=== PATIENT | male | born 1970 | race Caucasian/White ===

== ENCOUNTER 2021-03-03 12:11 | Emergency (ER) | payer MEDICAID, SELFPAY ==
--- NOTE | ~2021-03-03 | XR_ITS ---
EXAMINATION: XR chest 2V DATE: 03/03/2021 13:02 INDICATION: Abdominal swelling. Weight loss. TECHNIQUE: Frontal and lateral views of the chest were obtained. COMPARISON: None. FINDINGS: The chest demonstrates clear lungs without pneumonia, pleural effusion, or pneumothorax. Th e heart size is normal. IMPRESSION: 1. No acute cardiopulmonary disease. Reviewed, dictated and finalized at location A.
--- NOTE | ~2021-03-03 | XR_ITS ---
EXAMINATION: XR abdomen/kub 1V DATE: 03/03/2021 13:01 INDICATION: Abdominal swelling and pain. Weight loss. TECHNIQUE: A supine view of the abdomen on 2 radiographs was obtained. COMPARISON: None. FINDINGS: There are no dilated loops of bowel. There is a small volume of stool in the colon. IMPRESSION: 1. Normal bowel gas pattern. Reviewed, dictated and finalized at location A.
[2021-03-03 12:21] VITALS: BP 125/82; PULSE 101; RESP 18; TEMP 37; O2SAT 98
--- NOTE | 2021-03-03 12:25 | ED.GENADULT ---
HPI - General Adult General Chief complaint: Abdominal Pain Stated complaint: abd/raghav ankles swelling Time Seen by Provider: 03/03/21 12:25 Source: patient and RN notes reviewed Mode of arrival: ambulatory Limitations: no limitations History of Present Illness HPI narrative: 50-year-old male presents with complaints of bilateral lower extremities swelling and abdominal swelling for the past 9-10 days. ?Yuan reports increasing symptoms over the past 6 days, worse in the evenings. Over the past 1.5 months he has lost over 15 pounds, weight today is 173 pounds per [facility] scale. ?OTC water pill without relief. ?Denies history of poor circulation, chronic BLE swelling, DVT, cirrhosis of the liver, ascites, kidney failure. ?Patient drinks daily, started off with drinking a 6 pack daily for approximately 10 years and now drinks 4 glasses of wine daily. No known injury. ?No radiation of pain. ?No numbness or tingling, drainage, or bleeding. ?No loss of mobility. ?Exacerbating factor consists of prolonged standing. ?No fever or chills. Denies chest pain, dyspnea, headache, recent long car rides. ?No nausea, vomiting, or abdominal pain. Tolerating po intake well. Remains active. ?The patient reports he has not been diagnosed with COVID-19. ?The patient reports he is not waiting for the results of a COVID-19 lab test. ?The patient reports he does not have weakness, fatigue, or myalgia. The patient reports he does not have a new or worsening cough or shortness of breath. The patient reports he does not have any rhinorrhea, congestion, sore throat, and diarrhea. Denies recent traveling. Denies concerns for COVID-19 or exposures. At this time, the patient is not suspected of having COVID-19. Some parts of this dictation were generated by voice recognition software and may contain typographical and/or grammatical inaccuracies. Related Data Home Medications Medication Instructions Recorded Confirmed aspirin [Adult Aspirin] 81 mg PO DAILY 03/03/21 03/03/21 [id number] grass-hydran tablet PO 03/03/21 [Diuretic] cyanocobalamin-cobamamide [B12] musa SUBLINGUAL 03/03/21 Allergies Allergy/AdvReac Type Severity Reaction Status Date / Time No Known Allergies Allergy Verified 03/03/21 12:27 Review of Systems Review of Systems: Narrative: CONSTITUTIONAL: Denies fever, chills, sweats. EYES: Denies visual changes, redness, discharge. ENT: Denies rhinorrhea, congestion, sore throat, otalgia. CARDIOVASCULAR: Denies chest pain, palpitations. Complaints of bilateral lower extremities edema, abdominal swelling, weight loss. RESPIRATORY: Denies dyspnea, wheezing, cough. GASTROINTESTINAL: Denies abdominal pain, nausea, vomiting, diarrhea. GENITOURINARY: Denies dysuria, hematuria, abnormal discharge. SKIN: Denies rash or itching. MUSCULOSKELETAL: Denies acute back pain, joint pain, or myalgia. NEUROLOGIC: Denies numbness or focal weakness. PSYCHIATRIC: Denies anxiety or depression. All other systems reviewed & are unremarkable except as noted in HPI and below. [facility] Past Medical History Medical History Alcohol drinker Smoker Surgical History Surgical History (Updated 03/03/21 @ 12:47 by GIA Sheehan) Hx of appendectomy Family History Family History (Updated 03/03/21 @ 12:46 by GIA Sheehan) Father Alive and well Mother Alive and well Social History Social History (Updated 03/03/21 @ 12:49 by GIA Sheehan) Smoking packs per day: 0.5 Smoking cigarettes per day: 10.0 Years smoked: 20 Smoking pack-years: 10.00 Smoking status: Current every day smoker Tobacco type: cigarettes Second hand tobacco smoke exposure: No Alcohol intake: current Drinks per week: 28 Alcohol use details: Yuan reports 6 pack of beer daily for 10 yrs and 6 months ago started 4 glasses of domingo daily Substance use: never Substance use type: does not use Living arrangements: wit
--- NOTE | 2021-03-03 12:43 | ECG_ITS ---
Measurements Intervals [place] Rate: 88 P: 17 ME: 144 QRS: 48 QRSD: 77 T: 44 QT: 349 QTc: 424 Interpretive Statements SINUS RHYTHM LOW QRS VOLTAGE IN PRECORDIAL LEADS BASELINE ARTIFACT- I, III, AVR, AVL, AVF, V1 BORDERLINE ECG Electronically Signed On 03-03-2021 15:26:31 CDT by Chet House D.O.
[2021-03-03 12:54] VITALS: BP 123/88; PULSE 87
--- NOTE | 2021-03-03 12:57 | PC.NURSE ---
eCG and orthostatics complete
== END 2021-03-03 14:00 | disposition home or self-care (01) ==
PROVIDERS: Emergency Provider Nurse Practitioner Family
DX: R60.1 Generalized edema (principal); Z79.82 Long term (current) use of aspirin; F17.210 Nicotine dependence, cigarettes, uncomplicated
CPT/HCPCS: 71046; 74018; 93005; 99213; G0463

== ENCOUNTER 2021-03-13 11:13 | Observation (INO) | payer MEDICAID, SELFPAY ==
[2021-03-13] VITALS (17 sets, daily range): BP systolic 110–128; BP diastolic 74–95; PULSE 88–126; RESP 14–23; TEMP 35.4–37.4; O2SAT 97–100; BMI 23.3
--- NOTE | ~2021-03-13 | CT_ITS ---
EXAMINATION: CT abdomen pelvis w con INDICATION: Abdominal distention TECHNIQUE: Computed tomographic images of the abdomen and pelvis were obtained after the administrati on of 100 cc of Omnipaque 350 intravenous contrast. The dose-length product (DLP) was 465.90 mGy-cm. Automated exposure control and iterative reconstruction technique were employed. COMPARISON: None available FINDINGS: The lung bases are clear. The heart size is normal. There is a large volume of ascites. The liver surface is nodular. Periesophageal varices are noted. The spleen, pancreas, and adrenal glands are normal. Apparent wall thickening of the gallbladder is likely related to liver disease. The kidn eys are unremarkable. No pathologically enlarged abdominal or pelvic lymph nodes are identified. Ther e is no free intraperitoneal gas or evidence of bowel obstruction. Colonic diverticulosis is present without evidence of diverticulitis. There is an umbilical hernia containing fat and ascites. There is mild lumbar spondylosis. IMPRESSION: 1. Cirrhosis with a large volume of ascites. Reviewed, dictated and finalized at location A.
--- NOTE | ~2021-03-13 | US_ITS ---
EXAMINATION: US paracentesis abd w/image DATE: 03/13/2021 15:45 INDICATION: Ascites. TECHNIQUE: The procedure and its risks and benefits were discussed with the patient. Potential risks discussed included bleeding and infection. The skin was prepped and draped in sterile fashion. 1% lid ocaine was used for local anesthesia. Under ultrasound guidance, a 5 Fr catheter with trochar was adv anced into the ascites in the right lower quadrant. Fluid was aspirated into vacuum bottles. The cath eter was removed, and a dressing was applied. There were no immediate complications. FINDINGS: Ultrasound images demonstrate ascites and the catheter within the fluid. IMPRESSION: 1. Successful ultrasound-guided paracentesis yielding 4200 mL of cloudy yellow fluid. Reviewed, dictated and finalized at location A.
[2021-03-13 11:43] LABS: Basophils Percent Auto 0.4 % (0.2-1.2); Eosinophils Absolute Auto 0.1 K/mm3 (0-0.3); Eosinophils Percent Auto 0.8 % (0-4.4); Hematocrit 40.5 % (42.0-52.0); Hemoglobin 13.8 g/dL (14.0-18.0); Immature Granulocyte Absolute 0.04 K/mm3 (0.00-0.031); Immature Granulocyte Percent A 0.4 % (0-0.5); Lymphocytes Absolute Auto 4.04 K/mm3 (0.9-3.2); Lymphocytes Percent Auto 44.7 % (18.3-44.2); Mean Corpuscular HGB Conc 34.1 g/dl (32-36); Mean Corpuscular Hemoglobin 36.5 pg (26-34); Mean Corpuscular Volume 107.1 fl (80-100); Mean Platelet Volume 9.3 fl (7.4-10.4); Monocytes Percent Auto 10.7 % (2.6-8.5); Neutrophils Absolute Auto 3.9 K/mm3 (1.3-6.7); Platelet Count Result 345 k/mm3 (150-375); Red Blood Count 3.78 M/mm3 (4.6-6.20); Red Cell Distribution Width 12.2 % (11.5-14.5)
[2021-03-13 11:46] LABS: Add Urine Microscopic? YES; Appearance Urine Clear (Clear); Bacteria Urine Trace /hpf; Bilirubin Urine Negative (Negative); Blood Urine Negative (Negative); Color Urine Yellow (Yellow); Glucose Urine UA Negative (Negative); Ketones Urine Negative (Negative); Leukocyte Esterase Ur Negative LEU/UL (Negative); Mucus Urine Rare /lpf; Nitrate Urine Negative (Negative); Protein Urine Negative (Negative); Specific Grav Ur 1.012 (1.001-1.035); WBC Urine 0-3 /hpf
[2021-03-13 11:53] LABS: Alanine Aminotransferase 23 U/L (4-50); Albumin Level 2.6 g/dL (3.5-5.1); Alkaline Phosphatase 202 U/L (38-126); Anion Gap 6 mmol/L (8-16); Aspartate Amino Transferase 56 U/L (17-59); Bilirubin,Total 0.7 mg/dL (0.2-1.3); Blood Urea Nitrogen 4 mg/dL (9-20); Calcium 8.1 mg/dL (8.4-10.2); Carbon Dioxide 28 mmol/L (22-30); Chloride 101 mmol/L (98-107); Estimated CRCL calculation 98 ml/min; Estimated Glomerular Filt Rate > 60; Glucose 83 mg/dL (65-110); Lipase 74 U/L (23-300); Potassium 3.3 mmol/L (3.4-5.0); Sodium 135 mmol/L (137-145)
--- NOTE | 2021-03-13 12:34 | ED.GENADULT ---
HPI - General Adult General Chief complaint: Abdominal Pain Stated complaint: abd pain Time Seen by Provider: 03/13/21 12:06 Source: patient History of Present Illness HPI narrative: Patient is a 50 y/o male complaining of generalized abdominal pain and swelling for about 10 days. He describes his pain as tingling and sharp. He rates his pain as 4/10. He states that laying down on his back helps some with his abdominal pain. He also has bilateral leg swelling. He has no vomiting, diarrhea or dysuria. Of note, he was seen recently at urgent care and placed on HCTZ. Related Data Allergies Allergy/AdvReac Type Severity Reaction Status Date / Time No Known Allergies Allergy Verified 03/13/21 16:13 Review of Systems Constitutional: Constitutional: Denies chills, Denies fever(s), Denies headache(s) and Denies weakness Eyes: Eyes: Denies blurry vision ENT: Denies headache(s) and Denies neck pain Cardiovascular: Cardiovascular: Denies chest pain, Reports leg edema and Denies dyspnea Respiratory: Respiratory: Denies cough and Denies dyspnea Gastrointestinal: Gastrointestinal: Reports abdominal pain, Denies diarrhea, Denies nausea and Denies vomiting Genitourinary: Genitourinary: Denies hematuria and Denies dysuria Musculoskeletal: Musculoskeletal: Denies back pain and Denies neck pain Neurologic: Denies headache(s) and Denies weakness PMFSH Past Medical History Medical History Alcohol drinker Smoker Surgical History Surgical History Hx of appendectomy Family History Family History Father Alive and well Mother Alive and well Social History Social History Smoking packs per day: 0.5 Smoking cigarettes per day: 10.0 Years smoked: 30 Smoking pack-years: 15.00 Smoking status: Current every day smoker Tobacco type: cigarettes Second hand tobacco smoke exposure: No Alcohol intake: current Drinks per week: 21 Alcohol use details: Yuan reports 6 pack of beer daily for 10 yrs and 6 months ago started 4 glasses of domingo daily Substance use: current Substance use type: marijuana Other substance usage details: pt takes CBD gummies Gender identity (if verbalized by the patient): Male Spiritual care concerns: No Exam Const: General: no acute distress and well developed Orientation/consciousness: oriented to person, oriented to place, oriented to time and patient oriented x3 HENMT: Head: normocephalic Ears: external ears normal General nose exam: Normal external nose present Eyes: General: appearance normal, both eyes and all related structures Conjunctivae: conjunctivae normal Neck: Neck: normal visual inspection and full ROM Chest: Chest palpation & inspection: normal inspection of the chest and no tenderness Resp: Effort & Inspection: normal respiratory effort Auscultation: clear to auscultation bilaterally Cardio: Rate: tachycardic Rhythm: regular rhythm GI: Inspection: distended GI Palp: No abdominal tenderness and Yes Firmness to palpation present (GI) Skin: General skin exam: normal color and turgor normal Neuro: General: oriented to person, oriented to place, oriented to time and patient oriented x3 Cognition (Neuro): normal cognition Extrem: General: normal to inspection, full ROM and edema bilateral Psych: Appearance: grossly normal Mental Status: mental status grossly normal Affect: normal affect Course Consultations Consultation #1: 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 Date: 03/13/21 Time: 13:15 Vital Signs Vital signs: Vital Signs Temperature 37.4 C 03/13/21 11:15 Pulse Rate 126 H 03/13/21 11:15 Respiratory Rate 20 03/13/21 11:15 Blood Pressure 127/93 H 03/13/21 11:15 Pulse Oximetry 100 03/13/21 11:15 Temperature 35.4 C L 03/13/21 16:32 Pulse Rate 100 03/13/21
--- NOTE | 2021-03-13 12:37 | ECG_ITS ---
Measurements Intervals [place] Rate: 87 P: 54 UT: 182 QRS: -4 QRSD: 74 T: 8 QT: 365 QTc: 441 Interpretive Statements SINUS RHYTHM LOW QRS VOLTAGE IN PRECORDIAL LEADS BASELINE ARTIFACT- I, II, III, AVR, AVL, AVF BORDERLINE ECG Electronically Signed On 03-13-2021 18:00:25 CDT by Chet House D.O.
--- NOTE | 2021-03-13 12:47 | PC.NURSE ---
Pt off floor in radiology
[2021-03-13 12:57] LABS: NT Pro B Type Natriuretic Pept 181 pg/mL (5-100)
[2021-03-13 14:11] LABS: INR 1.1; Partial Thromboplastin Time 28.7 SECONDS (22.3-36.8); Prothrombin Time 13.9 Seconds (11.1-14.7)
[2021-03-13 15:59] LABS: Appearance Peritoneal Fluid Cloudy (Clear); Color Peritoneal Fluid Yellow (Colorless); Source Peritoneal Fluid Peritoneal Fluid
--- NOTE | 2021-03-13 16:09 | ADMGEN ---
This patient, Yuan Michaels, was admitted to Medical Room 342-01. Patient/family oriented to hospital policies and general routines including ID bracelet, bed and alarms, visiting hours, pain management, procedures, bathroom and other care routines, personal items, smoking policy, room service/diet, and visiting hours. Information on how to activate the Rapid Response Team has been discussed. Patient/Family are encouraged to report perceived risks to care and to ask questions if they do not understand what they are told or what they should do.
[2021-03-13 19:26] LABS: Lymphocytes Peritoneal Fluid 33 %; Macrophages Peritoneal Fluid 14 %; Mesothelial Cells Peritoneal Fluid 53 %; Nucleated Cells Peritoneal Flu 20 /uL (0-500); RBC Peritoneal Fluid 20 /uL (0-100000)
--- NOTE | 2021-03-13 19:35 | PM.IMHP ---
H&P: HPI History of Present Illness Date/Time: 03/13/21 19:35Thiparth is a 50-year-old male patient who came to the emergency room with complaint of generalized abdominal discomfort. The patient stated he initially went to urgent care and was prescribed hydrochlorothiazide. Than he was told to see a primary care doctor. He did this and his primary care doctor told him to go to the emergency room. So he went to the emergency room at [facility]. The patient stated they did nothing for him. So he decided to come here. His have an abdominal discomfort and swelling for way over 10 days. Patient admits to drinking a bottle of wine a day. Abdominal CT was read as cirrhosis with a large volume of ascites. A paracentesis was performed and they drained off 4200 mL of cloudy yellow fluid. The patient stated that he had never been diagnosed with cirrhosis of the liver in the past. H&H is 13.8 And40.5. potassium was found to be 3.3 and sodium 135. Alkaline phosphatase 202 and albumin 2.6. The patient denies any fever chills. No nausea vomiting or diarrhea. The patient last drink alcohol around 10 or 11:00 a.m. this morning. The patient was admitted to observation status overnight. On the date of service 03/13/2021. Chief Complaint: Abdominal discomfort Review of Systems Review of Systems: All systems reviewed & are unremarkable except as noted in HPI and below Constitutional: Constitutional: Reports as per HPI and Reports no additional constitutional complaints Eyes: Eyes: Reports as per HPI and Reports no additional eye complaints ENT: Reports system reviewed and no additional complaints, except as documented and Reports Normal hearing present Cardiovascular: Cardiovascular: Reports no additional cardiovascular complaints Respiratory: Respiratory: Reports no additional respiratory complaints and Reports no additional respiratory complaints Gastrointestinal: Gastrointestinal: Reports as per HPI and Reports no additional gastrointestinal complaints Musculoskeletal: Musculoskeletal: Reports no additional musculoskeletal complaints Integumentary/Breasts: Skin/Breast: Reports system reviewed and no additional complaints, except as docu and Reports as per HPI Neurologic: Reports system reviewed and no additional complaints, except as documented, Reports as per HPI and Reports Normal hearing present Psychiatric: Psychiatric: Reports no additional psychiatric complaints and Reports as per HPI Endocrine: Endocrine: Reports no additional endocrine complaints Hematologic/Lymphatic: Hematologic/Lymphatic: Reports no additional hematologic/lymphatic complaints Allergic/Immunologic: Allergic/Immunologic: Reports no additional allergic/immunologic complaints PMFSH Past Medical History Medical History Alcohol drinker Smoker Surgical History Surgical History H/O hernia repair Hx of appendectomy Family History Family History Father Alive and well Mother Alive and well Social History Social History (Updated 03/13/21 @ 19:43 by Tere Davenport NP) Social History: the patient drinks a bottle of wine a day and smokes a half pack a cigarettes a day. He has 2 children. He lives with a significant other and does not have a durable power brush operator for healthcare. He is a full code. The patient uses marijuana gummies. Smoking packs per day: 0.5 Smoking cigarettes per day: 10.0 Years smoked: 30 Smoking pack-years: 15.00 Smoking status: Current every day smoker Tobacco type: cigarettes Second hand tobacco smoke exposure: No Alcohol intake: current Drinks per week: 21 Alcohol use details: Yuan reports 6 pack of beer daily for 10 yrs and 6 months ago started 4 glasses of domingo daily Substance use: current Substance use type: marijuana Other substance usage details: pt takes CBD gummies Gen
[2021-03-13] MEDS: NICOTINE (*PBKC) 14 MG PATCH 1 PATCH TRANSDERM (20:24)
[2021-03-13 21:04] LABS: Hepatitis B Surface Antigen Negative (Negative)
[2021-03-13 21:10] LABS: HAV RESULT Negative (Negative); Hepatitis B Core IgM Result Negative (Negative)
[2021-03-13 21:22] LABS: Hepatitis C Virus Antibody Negative (Negative)
[2021-03-14 05:53] LABS: Basophils Absolute Auto 0.1 K/mm3 (0.0-0.1); Basophils Percent Auto 0.8 % (0.2-1.2); Eosinophils Absolute Auto 0.1 K/mm3 (0-0.3); Eosinophils Percent Auto 2.1 % (0-4.4); Hemoglobin 12.8 g/dL (14.0-18.0); Immature Granulocyte Absolute 0.04 K/mm3 (0.00-0.031); Immature Granulocyte Percent A 0.6 % (0-0.5); Lymphocytes Absolute Auto 3.22 K/mm3 (0.9-3.2); Lymphocytes Percent Auto 51.4 % (18.3-44.2); Mean Corpuscular HGB Conc 34.6 g/dl (32-36); Mean Corpuscular Hemoglobin 36.6 pg (26-34); Mean Corpuscular Volume 105.7 fl (80-100); Mean Platelet Volume 9.3 fl (7.4-10.4); Monocytes Absolute Auto 0.8 K/mm3 (0.1-0.6); Monocytes Percent Auto 13.1 % (2.6-8.5); Platelet Count Result 270 k/mm3 (150-375); Red Cell Distribution Width 11.9 % (11.5-14.5); White Blood Count 6.3 K/mm3 (4.5-10.0)
[2021-03-14 05:59] VITALS: BP 119/74; PULSE 95; RESP 17; TEMP 36.2; O2SAT 94
[2021-03-14 06:07] LABS: Alanine Aminotransferase 16 U/L (4-50); Alkaline Phosphatase 163 U/L (38-126); Anion Gap 2 mmol/L (8-16); Aspartate Amino Transferase 38 U/L (17-59); Bilirubin,Total 0.6 mg/dL (0.2-1.3); Blood Urea Nitrogen 4 mg/dL (9-20); Calcium 7.7 mg/dL (8.4-10.2); Carbon Dioxide 28 mmol/L (22-30); Chloride 105 mmol/L (98-107); Estimated CRCL calculation 111 ml/min; Estimated Glomerular Filt Rate > 60; Glucose 89 mg/dL (65-110); Magnesium 1.9 mg/dL (1.6-2.3); Potassium 2.9 mmol/L (3.4-5.0); Sodium 135 mmol/L (137-145)
--- NOTE | 2021-03-14 07:57 | WPDGICN ---
Assessment and Plan Assessment and plan (1) Decompensation of cirrhosis of liver: Code(s): K72.90 - Hepatic failure, unspecified without coma; K74.60 - Unspecified cirrhosis of liver Status: Acute Assessment and Plan: new diagnosis, probably from excessive alcohol use but we will obtain blood work to assess for other chronic liver conditions hepatitis negative patient will need liver imaging every 6 months for HCC surveillance also will schedule EGD as outpatient to assess for PHG or varices he can go home with follow-up office (2) Ascites: Code(s): R18.8 - Other ascites Status: Acute Assessment and Plan: fluid reviewed, no SBP he will need 2g na diet, nutrition education started on lasix 40mg and aldactone 100mg daily (discontinue HCTZ) and he can follow up office in 3-4 weeks with repeat labs (3) Alcohol abuse: Code(s): F10.10 - Alcohol abuse, uncomplicated Status: Acute Assessment and Plan: needs to stop drinking altogether (4) Smoker: Code(s): F17.200 - Nicotine dependence, unspecified, uncomplicated Status: Chronic Assessment and Plan: needs to quit (5) Hypokalemia: Code(s): E87.6 - Hypokalemia Status: Acute Assessment and Plan: replete here in the hospital GI Consult Note Consult date/time: 03/14/21 07:57 Reason for consult: new diagnosis of cirrhosis HPI: Yuan Michaels is a 50 year old male with no really major chronic medical problems who recently was started on HCTZ after he went to urgent care because leg edema. He drinks 3-4 glasses of wine most of the days. He came here with progressive increase of abdominal girth (denies history of liver disease, he says that during his regular physical check up never had problems) with bloating and also fatigue. CT scar a/p reviewed, cirrhosis with a large volume of ascites. A paracentesis was performed, obtained 4200 mL of cloudy yellow fluid. Blood work hb 13.8, plat 345, potassium 3.3, sodium 135, creat 0.8, alkaline phosphatase 202 and albumin 2.6. No nausea, vomiting, melena or diarrhea. Hepatitis panel negative. Denies illicits. Review of Systems Constitutional: Constitutional: Denies headache(s) and Denies weakness Eyes: Eyes: Denies blurry vision ENT: Reports Normal hearing present, Denies headache(s) and Denies neck pain Cardiovascular: Cardiovascular: Denies chest pain and Denies dyspnea Respiratory: Respiratory: Denies dyspnea Gastrointestinal: Gastrointestinal: Reports no additional gastrointestinal complaints Genitourinary: Genitourinary: Denies dysuria Musculoskeletal: Musculoskeletal: Denies neck pain Integumentary/Breasts: Skin/Breast: Denies dry skin Neurologic: Reports Normal hearing present, Denies headache(s) and Denies weakness Psychiatric: Psychiatric: Denies anxiety Endocrine: Endocrine: Denies change in body appearance Hematologic/Lymphatic: Hematologic/Lymphatic: Denies easy bleeding Allergic/Immunologic: Allergic/Immunologic: Denies urticaria PMFSH Past Medical History Medical History Alcohol abuse Alcohol drinker Ascites Decompensation of cirrhosis of liver Hypokalemia Smoker Surgical History Surgical History H/O hernia repair Hx of appendectomy Family History Family History Father Alive and well Mother Alive and well Social History Social History (Updated 03/13/21 @ 19:43 by Tere Davenport NP) Social History: the patient drinks a bottle of wine a day and smokes a half pack a cigarettes a day. He has 2 children. He lives with a significant other and does not have a durable power finance attorney for healthcare. He is a full code. The patient uses marijuana gummies. Smoking packs per day: 0.5 Smoking cigarettes per day: 10.0 Years smoked: 30 Smoking pack-years: 15.00 Smoking status: Mario
[2021-03-14] MEDS: NICOTINE (*PBKC) 14 MG PATCH 1 PATCH TRANSDERM (08:52)
[2021-03-14] MEDS: THIAMINE HCL 100 MG TABLET PO (08:52)
[2021-03-14] MEDS: ENOXAPARIN 40 MG/0.4 ML SYRINGE SUB-Q (08:52)
[2021-03-14] MEDS: FUROSEMIDE 40 MG TABLET PO (08:52)
[2021-03-14] MEDS: FOLIC ACID 1 MG TABLET PO (08:52)
[2021-03-14] MEDS: SPIRONOLACTONE 50 MG TABLET 100 MG PO (08:52)
[2021-03-14 09:33] LABS: Iron 40 ug/dL (49-181)
[2021-03-14 09:44] LABS: Percent Iron Saturation 26 % (20-50)
[2021-03-14 10:13] LABS: Immunoglobulin G 1970 mg/dL (700-1600); Immunoglobulin M 113 mg/dL (40-230)
[2021-03-14 10:42] LABS: Immunoglobulin A 908 mg/dL (70-400)
[2021-03-14 12:58] LABS: Potassium 2.9 mmol/L (3.4-5.0)
[2021-03-14] MEDS: POTASSIUM CHLORIDE 20 MEQ TABLET 40 MEQ PO (13:15)
--- NOTE | 2021-03-14 13:50 | PM.DS ---
DS: Admitting Diagnosis Admitting Diagnosis Admitting Diagnosis: cirrhosis DS: Discharge Diagnosis Discharge Diagnosis (1) Cirrhosis: Qualifiers: Ascites presence: with ascites Hepatic cirrhosis type: unspecified hepatic cirrhosis Qualified Code(s): K74.60 - Unspecified cirrhosis of liver; R18.8 - Other ascites Code(s): K74.60 - Unspecified cirrhosis of liver Status: Acute Assessment and Plan: Pt underwent a paracentesis 03/13/21 which yielded 4200ml of clowdy yellow fluid which improved his symptoms -GI was consulted and his cirrhosis lab work up is pending, he is going to f/u with Dr. Sutton for futher work up and evaluation. -Pt educated about cessation of alcohol -Pt started on lasix and spironolactone and needs a repeat BMP in one week and results are going to go to Dr. Sutton and he agrees to follow up. -continue low sodium diet (2) Alcohol drinker: Code(s): Z72.89 - Other problems related to lifestyle Status: Inactive Assessment and Plan: No withdraw symptoms while hospitalized. No need for librium at d/c . (3) Smoker: Code(s): F17.200 - Nicotine dependence, unspecified, uncomplicated Status: Chronic Assessment and Plan: smoking cessation encouraged (4) Hypokalemia: Code(s): E87.6 - Hypokalemia Status: Acute Assessment and Plan: Likely due to diuretics -Pt received 40meq before discharge and he was given 4 additional days for outpt and he is to get a follow up BMP to assess his potassium DS: Summary Hospital Course Hospital Course: Pt is a 50 y/o male Presented emergency room for abdominal distension and discomfort found to have cirrhosis and ascites. Vitals in the ER were temperature 37.4? C, pulse 126, respiratory rate 20, blood pressure 127/93, pulse ox 100 on room air. Initial white blood cell count 9.0, hemoglobin 13.8, hematocrit 40.5, platelets 345. BMP looks relatively normal with exception of potassium slightly low 3.3. AST and ALT are normal, alk-phos high 202. CT of the abdomen pelvis shows cirrhosis with large volume ascites. He underwent a paracentesis ultrasound 03/13/21 yielding 4200 mL of cloudy yellow fluid. G stain showed no organisms or white blood cells. His cultures have no growth to date and will be monitored until finalized. Patient's potassium is 2.9 today but he is feeling much better And is eating and drinking well. He is very insistent on going home as he has to take care of his children. I replaced his potassium today and give him 4 days worth of potassium outpatient. Since he is on Lasix and now spironolactone, I want him to get a BMP on Sunday. at that time, it can be reviewed to see if he needs additional potassium supplementation. The patient does not have a primary care physician but I spoke to Dr. Sutton who agreed to follow this lab. Also, pt drinks max 4 glasses of wine a day. he has no hx of alcohol withdraw symptoms in the past. He has not required the PRN librium while he was here. I do not think he needs additional medication for alcohol withdraw at this time. I will supplement folic acid and thiamine. The day of discharge patient was feeling much better. He was educated about the worrisome signs and symptoms come back to emergency room for and was discharged stable condition. Status at Discharge Functional status at discharge: independent ambulation Overall status at discharge: patient is progressing back to baseline Time Spent with Patient Time attestation: Total time spent providing and/or coordinating discharge services:36 min Time spent: Greater than 30 minutes Exam Narrative: Exam Narrative: General: Well developed well nourished patient in NAD HEENT: normocephalic Neck: supple Neuro: Alert and oriented x4 CV:RRR Resp:CTA Abd: Soft, partially distended. No pain to palpation. Positive bowel sounds Extremities: No swelling, erythema, or pain to palpation
[2021-03-14 14:55] VITALS: O2SAT 97
[2021-03-16 22:42] LABS: Albumin Peritoneal Fluid 0.7 g/dL
[2021-03-17 00:04] LABS: Anti Nuclear Antibody Titer 1:40 (Negative)
[2021-03-17 11:03] LABS: Ceruloplasmin 31 mg/dL (18-36)
[2021-03-20 09:53] LABS: Mitochondrial (M2) Ab (IgG) <=20.0 U (<=20.0)
--- NOTE | 2021-03-22 10:27 | PC.NURSE ---
ascites cx shows no growth
== END 2021-03-14 14:30 | disposition home or self-care (01) ==
LOC: ANHED 14:29 → ANH3MED 14:45
PROVIDERS: Emergency Medicine; Internal Medicine Gastroenterology; Nurse Practitioner; Admitting Provider Internal Medicine; Emergency Provider Emergency Medicine; Visit Provider Physician Assistant
DX: K74.60 Unspecified cirrhosis of liver (principal); R18.8 Other ascites; K72.90 Hepatic failure, unspecified without coma; E87.6 Hypokalemia; F10.10 Alcohol abuse, uncomplicated; F17.210 Nicotine dependence, cigarettes, uncomplicated; F12.90 Cannabis use, unspecified, uncomplicated
CPT/HCPCS: 36415; 49083; 74177; 80053; 80074; 81001; 82042; 82104; 82390; 82728; 82784; 83520; 83540; 83550; 83605; 83690; 83735; 83880; 84132; 84443; 85025; 85610; 85730; 86038; 86039; 87070; 87075; 87205; 88104; 88108; 88305; 89051; 93005; 96372; 99285; A9270; G0378; G0379; J1650; Q9967

== ENCOUNTER 2021-03-19 10:39 | Outpatient (CLI) | payer MEDICAID, SELFPAY ==
[2021-03-19 11:11] LABS: Anion Gap 6 mmol/L (8-16); Blood Urea Nitrogen 6 mg/dL (9-20); Calcium 8.5 mg/dL (8.4-10.2); Carbon Dioxide 26 mmol/L (22-30); Chloride 102 mmol/L (98-107); Estimated Glomerular Filt Rate > 60; Glucose 87 mg/dL (65-110); Potassium 3.8 mmol/L (3.4-5.0); Sodium 134 mmol/L (137-145)
== END 2021-03-19 10:40 | disposition home or self-care (01) ==
LOC: ANHLAB 10:44
PROVIDERS: Visit Provider Physician Assistant
DX: K74.60 Unspecified cirrhosis of liver (principal)
CPT/HCPCS: 36415; 80048

== ENCOUNTER → 2021-04-05 01:57 | Outpatient (CLI) | payer MEDICAID, SELFPAY ==
[2021-04-05 17:39] LABS: SARS-CoV-2 RNA PCR Negative
== END ==
PROVIDERS: Visit Provider Internal Medicine Gastroenterology
DX: Z01.812 Encounter for preprocedural laboratory examination (principal); Z20.822 Contact with and (suspected) exposure to COVID-19
CPT/HCPCS: C9803; U0003; U0005

== ENCOUNTER 2021-04-08 02:35 | Day surgery (SDC) | payer MEDICAID, SELFPAY ==
[2021-03-29 14:09] VITALS: BMI 22.4
[2021-04-08] MEDS: LACTATED RINGERS 1,000 ML 150 ML IV CONT (11:24)
--- NOTE | 2021-04-08 11:25 | P.PNAN_ITS ---
Anes - Initial Pre Proc Eval Procedure: Operation Date: 04/08/21 12:15 Proposed Procedures p Esophagogastroduodenoscopy - Timmy Miranda MD Date/Time: 04/08/21 11:25 Surgeon: Timmy Miranda MD Pre Op Diagnosis: alcoholic cirrhosis Patient Data Age: 50 Gender: M Height: 1.75 m Weight: 69 kg Allergies Allergy/AdvReac Type Severity Reaction Status Date / Time No Known Allergies Allergy Verified 04/08/21 11:25 Home Medications Medication Instructions Recorded Confirmed Type folic acid 1 mg PO DAILY #30 tablet 03/14/21 03/29/21 Rx thiamine HCl (vitamin B1) [Vitamin 100 mg PO QAM #30 tablet 03/14/21 03/29/21 Rx B-1] furosemide 80 mg PO DAILY 03/29/21 03/29/21 History spironolactone [Aldactone] 100 mg PO BID 03/29/21 03/29/21 History Patient hx anesthesia problems: none Family hx anesthesia problems: none PMFSH Past Medical History Medical History Alcohol abuse Alcohol drinker Ascites Decompensation of cirrhosis of liver Hypokalemia Smoker Surgical History Surgical History H/O hernia repair Hx of appendectomy Family History Family History Father Alive and well Mother Alive and well Social History Social History Social History: the patient drinks a bottle of wine a day and smokes a half pack a cigarettes a day. He has 2 children. He lives with a significant other and does not have a durable power workers compensation defense attorney for healthcare. He is a full code. The patient uses marijuana gummies. Smoking packs per day: 0.5 Smoking cigarettes per day: 10.0 Years smoked: 30 Smoking pack-years: 15.00 Smoking status: Current every day smoker Tobacco type: cigarettes Second hand tobacco smoke exposure: No Alcohol intake: current Drinks per week: 21 Alcohol use details: Yuan reports 6 pack of beer daily for 10 yrs and 6 months ago started 4 glasses of domingo daily Substance use: current Substance use type: marijuana Other substance usage details: pt takes CBD gummies Living arrangements: with family Gender identity (if verbalized by the patient): Male Spiritual care concerns: No Anes - Eval Final PreProcedure Day of Procedure 04/08/21 11:25 Patient weight: normal Heart: regular rate and rhythm Lungs: decreased breath sounds Airway: Mallampati scale class II Neurological: other (alert) Last oral intake: >/= 8 hours ASA classification: III Emergent: no Anesthesia type and monitoring: general GIVS and standard monitoring Informed Consent: The patient's anesthetic plan and its attendant risks and benefits were discussed with the patient/family/POA. Questions were solicited and answers provided to the satisfaction of the patient/family/POA.
[2021-04-08 11:26] VITALS: BP 105/73; PULSE 100; RESP 18; TEMP 36.5; O2SAT 97
--- NOTE | 2021-04-08 11:36 | WPDHPUPDATE1 ---
History and Physical Update Update Date/Time: 04/08/21 11:36 History and Physical has been reviewed, including an updated exam of the patient. There are NO changes in the patient's condition. Risks, benefits, and alternatives have been discussed and questions answered. Patient agrees to proceed with procedure.
[2021-04-08 11:50] VITALS: BP 97/69; PULSE 92; RESP 12; O2SAT 94
[2021-04-08 12:00] VITALS: BP 96/72; PULSE 90; RESP 11; O2SAT 92
[2021-04-08 12:10] VITALS: BP 108/82; PULSE 90; RESP 17; O2SAT 95
== END 2021-04-08 12:29 | disposition home or self-care (01) ==
PROVIDERS: Visit Provider Internal Medicine Gastroenterology
PROC: 0DJ08ZZ Inspection of Upper Intestinal Tract, Via Natural or Artificial Opening Endoscopic (ICD-10-PCS; CPT 43235; principal; 2021-04-08 12:15)
DX: K74.60 Unspecified cirrhosis of liver (principal); K21.00 Gastro-esophageal reflux disease with esophagitis, without bleeding; K29.70 Gastritis, unspecified, without bleeding; R18.8 Other ascites; F10.10 Alcohol abuse, uncomplicated; F17.200 Nicotine dependence, unspecified, uncomplicated
CPT/HCPCS: 43239; 88305; J2704; J7120

== ENCOUNTER 2021-08-01 11:44 | Outpatient (CLI) | payer OTHER, SELFPAY ==
[2021-08-01 20:24] LABS: Basophils Absolute Auto 0.1 K/mm3 (0.0-0.1); Basophils Percent Auto 0.8 % (0.2-1.2); Eosinophils Absolute Auto 0.1 K/mm3 (0-0.3); Eosinophils Percent Auto 0.7 % (0-4.4); Hematocrit 41.1 % (42.0-52.0); Hemoglobin 14.9 g/dL (14.0-18.0); Immature Granulocyte Absolute 0.07 K/mm3 (0.00-0.031); Immature Granulocyte Percent A 0.7 % (0-0.5); Lymphocytes Absolute Auto 4.07 K/mm3 (0.9-3.2); Lymphocytes Percent Auto 41.9 % (18.3-44.2); Mean Corpuscular HGB Conc 36.3 g/dl (32-36); Mean Corpuscular Hemoglobin 37.7 pg (26-34); Mean Corpuscular Volume 104.1 fl (80-100); Mean Platelet Volume 8.9 fl (7.4-10.4); Monocytes Absolute Auto 0.9 K/mm3 (0.1-0.6); Monocytes Percent Auto 8.9 % (2.6-8.5); Neutrophils Absolute Auto 4.6 K/mm3 (1.3-6.7); Platelet Count Result 334 k/mm3 (150-375); Red Blood Count 3.95 M/mm3 (4.6-6.20); Red Cell Distribution Width 15.2 % (11.5-14.5); White Blood Count 9.7 K/mm3 (4.5-10.0)
[2021-08-01 20:38] LABS: Alanine Aminotransferase 47 U/L (4-50); Albumin Level 4.9 g/dL (3.5-5.1); Alkaline Phosphatase 164 U/L (38-126); Anion Gap 13 mmol/L (8-16); Aspartate Amino Transferase 122 U/L (17-59); Bilirubin,Total 0.8 mg/dL (0.2-1.3); Blood Urea Nitrogen 8 mg/dL (9-20); Calcium 9.4 mg/dL (8.4-10.2); Carbon Dioxide 26 mmol/L (22-30); Chloride 87 mmol/L (98-107); Estimated Glomerular Filt Rate > 60; Glucose 103 mg/dL (65-110); Sodium 126 mmol/L (137-145)
== END 2021-08-01 11:45 | disposition home or self-care (01) ==
LOC: ANHBWCLAB 11:46
PROVIDERS: PCP Family Medicine; Visit Provider Family Medicine
DX: D64.9 Anemia, unspecified (principal)
CPT/HCPCS: 36415; 80053; 82607; 85025

== ENCOUNTER 2021-08-23 14:08 | Outpatient (CLI) | payer OTHER, SELFPAY ==
[2021-08-23 21:17] LABS: Alanine Aminotransferase 26 U/L (4-50); Alkaline Phosphatase 114 U/L (38-126); Anion Gap 8 mmol/L (8-16); Aspartate Amino Transferase 58 U/L (17-59); Bilirubin,Total 0.3 mg/dL (0.2-1.3); Blood Urea Nitrogen 4 mg/dL (9-20); Carbon Dioxide 22 mmol/L (22-30); Chloride 103 mmol/L (98-107); Estimated Glomerular Filt Rate > 60; Glucose 94 mg/dL (65-110); Potassium 4.3 mmol/L (3.4-5.0); Sodium 133 mmol/L (137-145)
== END 2021-08-23 14:09 | disposition home or self-care (01) ==
LOC: ANHBWCLAB 14:09
PROVIDERS: PCP Family Medicine; Visit Provider Family Medicine
DX: K72.90 Hepatic failure, unspecified without coma (principal); E87.1 Hypo-osmolality and hyponatremia; K74.60 Unspecified cirrhosis of liver
CPT/HCPCS: 36415; 80048; 80076

== ENCOUNTER 2022-03-22 00:41 | Day surgery (SDC) | payer OTHER, MEDICAID, SELFPAY ==
[2021-11-14 14:00] VITALS: BMI 26.6
[2022-03-07 14:15] VITALS: BMI 26.6
[2022-03-22 07:42] VITALS: BP 136/98; PULSE 75; RESP 20; TEMP 36.7; O2SAT 99
[2022-03-22] MEDS: LACTATED RINGERS 1,000 ML 150 ML IV CONT (07:49)
--- NOTE | 2022-03-22 07:58 | WPDANESEPPF ---
Anes - Initial Pre Proc Eval Procedure: Operation Date: 03/22/22 08:45 Proposed Procedures p Screening Colonoscopy - Timym Miranda MD Date/Time: 03/22/22 07:58 Surgeon: Timmy Miranda MD Pre Op Diagnosis: neoplasm screening Patient Data Age: 51 Gender: M Height: 1.75 m Weight: 82 kg Last Vital Signs Temp 36.7 C 03/22/22 07:42 Pulse 75 03/22/22 07:42 Resp 20 03/22/22 07:42 BP 136/98 H 03/22/22 07:42 Pulse Ox 99 03/22/22 07:42 O2 Del Method Room Air 03/22/22 07:42 Allergies Allergy/AdvReac Type Severity Reaction Status Date / Time No Known Allergies Allergy Verified 03/22/22 07:41 Home Medications Medication Instructions Recorded Confirmed Type thiamine HCl (vitamin B1) 100 mg 100 mg PO QAM #30 tabs 04/08/21 03/07/22 Rx tablet (Vitamin B-1) albuterol sulfate 90 mcg/actuation 1 inh inhalation Q4H PRN shortness 08/01/21 03/07/22 Rx aerosol inhaler of breath or wheezing #8.5 grams vitamin B complex (B 1 tablet PO DAILY #90 tabs 08/08/21 03/07/22 Rx Complex-Vitamin B12 tablet) Patient hx anesthesia problems: none Family hx anesthesia problems: none Results Review: All pre-operative results and documents have been reviewed as part of the pre-operative evaluation. [facility] Past Medical History Medical History Alcohol abuse Alcohol drinker Anxiety Ascites Colon cancer screening Decompensation of cirrhosis of liver Hypokalemia Smoker Surgical History Surgical History H/O hernia repair Hx of appendectomy Family History Family History Father Alive and well Depression Anxiety Mother Alive and well Anxiety Depression Grandparent Hypertension Grandparent Cerebrovascular accident Social History Social History Social History: the patient drinks a bottle of wine a day and smokes a half pack a cigarettes a day. He has 2 children. He lives with a significant other and does not have a durable power car groomer for healthcare. He is a full code. The patient uses marijuana gummies. Smoking packs per day: 0.5 Smoking cigarettes per day: 10.0 Years smoked: 30 Smoking pack-years: 15.00 Smoking status: Current every day smoker Tobacco type: cigarettes Second hand tobacco smoke exposure: No Alcohol intake: current Drinks per week: 40 Alcohol use details: Yuan reports 6 pack of beer daily for 10 yrs and 6 months ago started 4 glasses of domingo daily Substance use: current Substance use type: marijuana Other substance usage details: THC gummies Living arrangements: with family Gender identity (if verbalized by the patient): Male Sexual Orientation (if Verbalized by the Patient): Straight or Heterosexual Spiritual care concerns: No Anes - Eval Final PreProcedure Day of Procedure 03/22/22 07:58 Patient weight: overweight Heart: regular rate and rhythm Lungs: decreased breath sounds Airway: Mallampati scale class II Neurological: other (alert) Last oral intake: >/= 8 hours ASA classification: IV Emergent: no Anesthesia type and monitoring: general GIVS and standard monitoring Results Review: All pre-operative results and documents have been reviewed as part of the pre-operative evaluation. Informed Consent: The patient's anesthetic plan and its attendant risks and benefits were discussed with the patient/family/POA. Questions were solicited and answers provided to the satisfaction of the patient/family/POA.
--- NOTE | 2022-03-22 08:35 | PM.HPGS ---
History of Present Illness History of Present Illness Consent: Risks, benefits, and alternatives have been discussed and questions answered. Patient agrees to proceed with procedure. Chief complaint: neoplasm screening Narrative: Yuan Michaels is a 51 year old male here for first screening colonoscopy Review of Systems Constitutional: Constitutional: Denies headache(s) and Denies weakness Eyes: Eyes: Denies blurry vision ENT: Reports Normal hearing present, Denies headache(s) and Denies neck pain Cardiovascular: Cardiovascular: Denies chest pain and Denies dyspnea Respiratory: Respiratory: Denies dyspnea Gastrointestinal: Gastrointestinal: Reports no additional gastrointestinal complaints Genitourinary: Genitourinary: Denies dysuria Musculoskeletal: Musculoskeletal: Denies neck pain Integumentary/Breasts: Skin/Breast: Denies dry skin Neurologic: Reports Normal hearing present, Denies headache(s) and Denies weakness Psychiatric: Psychiatric: Denies anxiety Endocrine: Endocrine: Denies change in body appearance Hematologic/Lymphatic: Hematologic/Lymphatic: Denies easy bleeding Allergic/Immunologic: Allergic/Immunologic: Denies urticaria PMFSH Past Medical History Medical History Alcohol abuse Alcohol drinker Anxiety Ascites Colon cancer screening Decompensation of cirrhosis of liver Hypokalemia Smoker Surgical History Surgical History (Reviewed 09/15/21 @ 14:50 by Radha Watters [facility]) H/O hernia repair Hx of appendectomy Family History Family History Father Alive and well Depression Anxiety Mother Alive and well Anxiety Depression Grandparent Hypertension Grandparent Cerebrovascular accident Social History Social History (Reviewed 09/15/21 @ 14:50 by Radha Watters [facility]) Social History: the patient drinks a bottle of wine a day and smokes a half pack a cigarettes a day. He has 2 children. He lives with a significant other and does not have a durable power transactional attorney for healthcare. He is a full code. The patient uses marijuana gummies. Smoking packs per day: 0.5 Smoking cigarettes per day: 10.0 Years smoked: 30 Smoking pack-years: 15.00 Smoking status: Current every day smoker Tobacco type: cigarettes Second hand tobacco smoke exposure: No Alcohol intake: current Drinks per week: 40 Alcohol use details: Yuan reports 6 pack of beer daily for 10 yrs and 6 months ago started 4 glasses of domingo daily Substance use: current Substance use type: marijuana Other substance usage details: THC yosvany Living arrangements: with family Gender identity (if verbalized by the patient): Male Sexual Orientation (if Verbalized by the Patient): Straight or Heterosexual Spiritual care concerns: No Meds Home Medications and Allergies Home Medications Medication Instructions Recorded Confirmed Type thiamine HCl (vitamin B1) 100 mg 100 mg PO QAM #30 tabs 04/08/21 03/07/22 Rx tablet (Vitamin B-1) albuterol sulfate 90 mcg/actuation 1 inh inhalation Q4H PRN shortness 08/01/21 03/07/22 Rx aerosol inhaler of breath or wheezing #8.5 grams vitamin B complex (B 1 tablet PO DAILY #90 tabs 08/08/21 03/07/22 Rx Complex-Vitamin B12 tablet) Allergies Allergy/AdvReac Type Severity Reaction Status Date / Time No Known Allergies Allergy Verified 03/22/22 07:41 Vital Signs Vital Signs - 24 hr 03/22/22 07:42 Temperature 98.1 F Pulse Rate 75 Respiratory Rate 20 Blood Pressure 136/98 H Pulse Oximetry 99 Oxygen Delivery Room Air Exam Const: General: comfortable and no acute distress HENMT: General nose exam: Normal nares present Eyes: General: appearance normal, both eyes and all related structures Neck: Neck: no JVD Resp: Auscultation: clear to auscultation bilaterally Cardio: Rate: regular rate Rhythm: regular rhythm GI: Inspection: non
--- NOTE | 2022-03-22 08:56 | SUR.OPER ---
Descending colon polyp not retrieved Dr. Sutton notified.
[2022-03-22 08:59] VITALS: BP 133/84; PULSE 71; RESP 17; O2SAT 100
[2022-03-22 09:09] VITALS: BP 132/84; PULSE 72; RESP 22; O2SAT 100
[2022-03-22 09:19] VITALS: BP 137/99; PULSE 75; RESP 20; O2SAT 100
== END 2022-03-22 09:38 | disposition home or self-care (01) ==
PROVIDERS: PCP Family Medicine; Visit Provider Internal Medicine Gastroenterology
PROC: 0DJD8ZZ Inspection of Lower Intestinal Tract, Via Natural or Artificial Opening Endoscopic (ICD-10-PCS; CPT 45378; principal; 2022-03-22 08:45)
DX: Z12.11 Encounter for screening for malignant neoplasm of colon (principal); K63.5 Polyp of colon; K57.30 Diverticulosis of large intestine without perforation or abscess without bleeding; K64.8 Other hemorrhoids; F41.9 Anxiety disorder, unspecified; E87.6 Hypokalemia; F17.210 Nicotine dependence, cigarettes, uncomplicated; F12.90 Cannabis use, unspecified, uncomplicated; Z79.51 Long term (current) use of inhaled steroids
CPT/HCPCS: 45385; 88305; J2001; J2704; J7120

== ENCOUNTER 2022-07-05 08:32 | Outpatient (CLI) | payer OTHER, MEDICAID, SELFPAY ==
--- NOTE | ~2022-07-05 | US_ITS ---
EXAMINATION: US right upper quadrant DATE: 07/05/2022 09:14 INDICATION: Cirrhosis of the liver TECHNIQUE: Multiple grayscale and Doppler ultrasound images of the abdomen were obtained. COMPARISON: CT, 03/13/2021 FINDINGS: The head and body of the pancreas are normal. The pancreatic tail is obscured by bowel gas. The liver demonstrates increased echogenicity and coarsened echotexture. There is nodularity of the liver surface. Normal hepatopetal flow in the main portal vein. There is a small amount of debris in the gallbladder. There is no gallbladder wall thickening. The normal common bile duct measures 4 mm. There was no sonographic Dumont sign. IMPRESSION: 1. Cirrhosis of the liver. 2. Gallbladder debris. Reviewed, dictated and finalized at location [facility]. 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
[2022-07-05 09:30] LABS: Hematocrit 44.2 % (42.0-52.0); Hemoglobin 14.9 g/dL (14.0-18.0); Mean Corpuscular HGB Conc 33.7 g/dl (32-36); Mean Corpuscular Hemoglobin 37.1 pg (26-34); Mean Platelet Volume 9.2 fl (7.4-10.4); Platelet Count Result 165 k/mm3 (150-375); Red Blood Count 4.02 M/mm3 (4.6-6.20); Red Cell Distribution Width 13.2 % (11.5-14.5); White Blood Count 4.8 K/mm3 (4.5-10.0)
[2022-07-05 09:44] LABS: Alanine Aminotransferase 51 U/L (6-50); Albumin Level 4.1 g/dL (3.5-5.1); Alkaline Phosphatase 112 U/L (38-126); Anion Gap 11 mmol/L (8-16); Aspartate Amino Transferase 83 U/L (17-59); Bilirubin,Total 0.4 mg/dL (0.2-1.3); Blood Urea Nitrogen 4 mg/dL (9-20); Calcium 8.7 mg/dL (8.4-10.2); Carbon Dioxide 28 mmol/L (22-30); Chloride 100 mmol/L (98-107); Estimated Glomerular Filt Rate > 60; Glucose 95 mg/dL (65-110); Sodium 139 mmol/L (137-145)
== END 2022-07-05 08:33 | disposition home or self-care (01) ==
PROVIDERS: PCP Internal Medicine Gastroenterology; Visit Provider Internal Medicine Gastroenterology
DX: R18.8 Other ascites (principal); K74.60 Unspecified cirrhosis of liver
CPT/HCPCS: 36415; 76705; 80053; 85027; 85610

== ENCOUNTER 2023-05-09 09:39 | Outpatient (CLI) | payer OTHER, SELFPAY ==
--- NOTE | ~2023-05-09 | XR_ITS ---
Supine and upright views of the abdomen Clinical history: Abdominal pain Findings: Bowel gas pattern is nonspecific. No evidence for obstruction or free air. No abnormal mass lesion or calcification is seen. Osseous structures are intact. Impression: No significant abnormality is seen. Reviewed, dictated and finalized at [facility]. Impression: No significant abnormality is seen.
== END 2023-05-09 09:40 | disposition home or self-care (01) ==
PROVIDERS: PCP Nurse Practitioner Adult Health; Visit Provider Nurse Practitioner Adult Health
DX: R18.8 Other ascites (principal); Z87.19 Personal history of other diseases of the digestive system
CPT/HCPCS: 74018

== ENCOUNTER 2023-05-24 11:55 | Emergency (ER) | payer OTHER, SELFPAY ==
[2023-05-24] VITALS (9 sets, daily range): BP systolic 120–138; BP diastolic 89–94; PULSE 87–108; RESP 15–21; TEMP 36.8; O2SAT 92–99
--- NOTE | ~2023-05-24 | CT_ITS ---
CT of the Abdomen and Pelvis: Indication: Abdominal distention Technique: 2.5 mm axial scans were obtained through the abdomen and pelvis following intravenous adm inistration of 100 cc of Omnipaque 350. Dose reduction technique was used on this scan by utilizing a utomated exposure control and iterative reconstruction technique. The dose-length product (DLP) was 5 18.66 mGy-cm. COMPARISON: 03/13/2021 Findings: Scans through the lung bases demonstrate small hiatal hernia. There is micronodular contour of liver with diffusely heterogeneous hepatic parenchyma. Small gallsto bailee are present. The spleen, pancreas, adrenals and kidneys are within normal limits. No evidence of aortic aneurysm. No lymphadenopathy. There is mild diffuse large bowel wall thickening, likely related to the presence of ascites. Wall th ickening at the gastric pylorus is probably related to peristalsis. No bowel obstruction. Small fat-c ontaining umbilical hernia present. Images through the pelvis were performed. Possible mild urinary bladder wall thickening. No pelvic ma ss seen. Small to moderate abdominopelvic ascites is present. No ascites. Impression: Micronodular contour of liver is consistent with cirrhosis. Diffusely heterogeneous hepatic parenchym a is present, of uncertain etiology. Diagnostic considerations could include infiltrating neoplasm, h epatitis, or changes related to cirrhosis. Correlation with serum alpha-fetoprotein level recommended . Pre and postcontrast MR should also be considered for further imaging evaluation of the liver. Small to moderate abdominopelvic ascites. Cholelithiasis. Small fat-containing umbilical hernia. Possible mild urinary bladder wall thickening. Correlate for cystitis. Reviewed, dictated and finalized at location . Impression: Micronodular contour of liver is consistent with cirrhosis. Diffusely heterogen eous hepatic parenchyma is present, of uncertain etiology. Diagnostic considera tions could include infiltrating neoplasm, hepatitis, or changes related to cir rhosis. Correlation with serum alpha-fetoprotein level recommended. Pre and pos tcontrast MR should also be considered for further imaging evaluation of the li johny. Small to moderate abdominopelvic ascites. Cholelithiasis. Small fat-containing umbilical hernia. Possible mild urinary bladder wall thickening. Correlate for cystitis.
--- NOTE | 2023-05-24 12:26 | ED.ABDPAIN ---
HPI - Abdominal Pain General Chief Complaint: Abdominal Pain Stated Complaint: ABD PAIN, HX ASCITIES Time Seen by Provider: 05/24/23 12:25 History of Present Illness HPI narrative: Patient is a 53-year-old male with history of liver cirrhosis and ascites here with abdominal pain and distension. Patient states that about a year and a half ago he needed and paracentesis for his abdominal distension. He states the last 2-3 months it has been progressively worsening becoming more distended and tight feeling. He states that about 1 week ago he went to his primary care doctor's office and they noted that he should return in 1 week if the symptoms have not improved. Today he went back to the office because he was having abdominal pain and distension continuing. He notes that they told him he had a fever at the clinic, temperature there was 99.9. They referred him into the emergency department for potential paracentesis. Patient states he had no fever chills that he was aware of. He denies any nausea, vomiting, diarrhea. He has had some decreased appetite and PO intake. He has a chronic cough which she attributes to having young children at home. He does note that he is a daily drinker, notes he drinks 2-6 beers during the week and can drink upwards of 12 beers a day on the weekends. Related Data Home Medications Medication Instructions Recorded Confirmed Potassium BYMOUTH 05/09/23 05/24/23 Allergies Allergy/AdvReac Type Severity Reaction Status Date / Time No Known Allergies Allergy Verified 05/24/23 12:08 Review of Systems Review of Systems: CONSTITUTIONAL: Denies fever, chills, or sweats. EYES: Denies visual changes, redness, or discharge. ENT: Denies rhinorrhea, congestion, sore throat, or otalgia. CARDIOVASCULAR: Denies chest pain, palpitations, or edema. RESPIRATORY: Cough, no dyspnea. GASTROINTESTINAL: abdominal pain, distention, no nausea, vomiting or diarrhea. GENITOURINARY: Denies dysuria or hematuria. SKIN: Denies rash or itching. MUSCULOSKELETAL: Denies back pain, joint pain, or myalgia. NEUROLOGIC: Denies headache, numbness, or weakness. PSYCHIATRIC: Denies anxiety or depression. [facility] Past Medical History Medical History Adenomatous colon polyp Alcohol abuse Alcohol drinker Anxiety Ascites Colon cancer screening Decompensation of cirrhosis of liver Elevated liver enzymes Hypokalemia Macrocytosis Smoker Surgical History Surgical History H/O hernia repair Hx of appendectomy Family History Family History Father Alive and well Depression Anxiety Mother Alive and well Anxiety Depression Grandparent Hypertension Grandparent Cerebrovascular accident Social History Social History (Updated 09/19/22 @ 15:38 by Estee Morfin MA) Social History: the patient drinks a bottle of wine a day and smokes a half pack a cigarettes a day. He has 2 children. He lives with a significant other and does not have a durable power employment law attorney for healthcare. He is a full code. The patient uses marijuana gummies. Smoking packs per day: 0.5 Smoking cigarettes per day: 10.0 Years smoked: 30 Smoking pack-years: 15.00 Smoking status: Current every day smoker Tobacco type: cigarettes Second hand tobacco smoke exposure: No Alcohol intake: current Drinks per week: 40 Alcohol use details: Yuan reports 6 pack of beer daily for 10 yrs and 6 months ago started 4 glasses of domingo daily Substance use: current Substance use type: marijuana Other substance usage details: THC gummies Lack of Transportation: No Lack of Food: Never True Current Housing: I Have Housing Concerned About Future Housing: No Difficulty Paying Gas/Electric Bills: No Difficulty Paying for Meds: No Currently Unemployed: No Education: Master's Degree or Higher Difficulty
[2023-05-24 12:46] LABS: Basophils Absolute Auto 0.1 K/mm3 (0.0-0.1); Basophils Percent Auto 0.9 % (0.2-1.2); Eosinophils Percent Auto 0.2 % (0-4.4); Hemoglobin 13.3 g/dL (14.0-18.0); Immature Granulocyte Absolute 0.04 K/mm3 (0.00-0.031); Immature Granulocyte Percent A 0.4 % (0-0.5); Lymphocytes Absolute Auto 2.86 K/mm3 (0.9-3.2); Lymphocytes Percent Auto 27.8 % (18.3-44.2); Mean Corpuscular HGB Conc 33.3 g/dl (32-36); Mean Corpuscular Hemoglobin 36.7 pg (26-34); Mean Corpuscular Volume 110.5 fl (80-100); Monocytes Absolute Auto 0.9 K/mm3 (0.1-0.6); Monocytes Percent Auto 8.6 % (2.6-8.5); Neutrophils Absolute Auto 6.4 K/mm3 (1.3-6.7); Neutrophils Percent Auto 62.1 % (45.5-73.1); Platelet Count Result 172 k/mm3 (150-375); Red Blood Count 3.62 M/mm3 (4.6-6.20); Red Cell Distribution Width 13.2 % (11.5-14.5); White Blood Count 10.3 K/mm3 (4.5-10.0)
[2023-05-24 12:55] LABS: Alanine Aminotransferase 49 U/L (6-50); Albumin Level 3.3 g/dL (3.5-5.1); Alkaline Phosphatase 288 U/L (38-126); Anion Gap 10 mmol/L (8-16); Aspartate Amino Transferase 184 U/L (17-59); Bilirubin,Total 1.5 mg/dL (0.2-1.3); Blood Urea Nitrogen 5 mg/dL (9-20); Carbon Dioxide 23 mmol/L (22-30); Chloride 105 mmol/L (98-107); Estimated CRCL calculation 92 ml/min; Estimated Glomerular Filt Rate > 60; Glucose 102 mg/dL (65-110); Lipase 126 U/L (23-300); Sodium 138 mmol/L (137-145)
[2023-05-24 12:59] LABS: INR 1.1; Prothrombin Time 15.2 Seconds (11.1-14.7)
[2023-05-24 13:07] LABS: Troponin I < 0.012 ng/mL (0.000-0.034)
[2023-05-24 13:08] LABS: Appearance Urine Clear (Clear); Bilirubin Urine Negative (Negative); Blood Urine Negative (Negative); Color Urine Dark Yellow (Yellow); Glucose Urine UA Negative (Negative); Ketones Urine Trace mg/dL (Negative); Leukocyte Esterase Ur Negative LEU/UL (Negative); Nitrate Urine Negative (Negative); Protein Urine Negative (Negative); Specific Grav Ur 1.013 (1.001-1.035); pH Urine 5.5 (5.0-9.0)
[2023-05-24 13:17] LABS: Add Urine Microscopic? NO
[2023-05-24 13:21] LABS: SARS-CoV-2 RNA PCR Negative (Negative)
== END 2023-05-24 14:20 | disposition home or self-care (01) ==
PROVIDERS: Emergency Medicine; Emergency Provider Student in an Organized Health Care Education/Training Program; PCP Family Medicine
DX: K70.31 Alcoholic cirrhosis of liver with ascites (principal); R10.84 Generalized abdominal pain; K80.20 Calculus of gallbladder without cholecystitis without obstruction; K42.9 Umbilical hernia without obstruction or gangrene
CPT/HCPCS: 36415; 74177; 80053; 81003; 83690; 84484; 85025; 85610; 85730; 87635; 99284; Q9967